=== PATIENT | male | born 1975 | race Two or more races ===

== ENCOUNTER 2021-09-06 17:15 | Emergency (ER) | payer OTHER ==
[~2021-09-06] VITALS: Ht 172.7 cm; Wt 99.8 kg
[2021-09-06 17:25] VITALS: BP 150/84
--- NOTE | 2021-09-06 18:02 | NUR ---
Patient discharged to home in stable condition. Written and verbal after care instructions given. Patient verbalizes understanding of instruction.
== END 2021-09-06 18:03 | disposition home or self-care (01) ==
LOC: ER 17:25
DX: M25.512 Pain in left shoulder (principal); I10 Essential (primary) hypertension; E11.9 Type 2 diabetes mellitus without complications; F17.200 Nicotine dependence, unspecified, uncomplicated; Z60.2 Problems related to living alone